=== PATIENT | female | born 1970 | race Caucasian/White ===

== ENCOUNTER 2018-11-05 16:38 | Emergency (ER) | payer OTHER ==
[2018-11-05] MEDS ORDERED: NS(*) 0.9% 1000 ML BAG 1,000 ML IV ONE (16:51)
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
[2018-11-05] MEDS ORDERED: fentaNYL CITR 100 MCG/2 ML AMP IVP ONE (16:55)
[2018-11-05] MEDS ORDERED: ONDANSETRON 4 MG/2 ML VIAL IVP ONE ×2 (16:55→19:20)
[2018-11-05] MEDS ORDERED: DIPHTH/TETANUS/ACEL. PERTUSSIS IM ONE (16:55)
[2018-11-05 17:02] LABS: PLATELET COUNT, AUTOMATED 332 K/uL (150-450)
[2018-11-05 17:09] LABS: INR 0.97
[2018-11-05] MEDS ORDERED: IOPAMIDOL 76% 75 ML INFUS BTL 0 ML ONE (17:11)
[2018-11-05] MEDS ORDERED: TOPI100C6 PO (17:12)
[2018-11-05] MEDS ORDERED: ESTR1PAT18 (17:12)
--- NOTE | 2018-11-05 17:16 | RADIOLOGY IMAGING REPORT ---
FACILITY: [facility] PATIENT NAME: Courtney Santillan : 1970 MR: [id number] V: [id number] EXAM DATE: ORDERING PHYSICIAN: KALEIGH RODRIGUEZ TECHNOLOGIST: Location: [facility] Patient: Courtney Santillan : 1970 Visit/Account:[id number] Date of Sevice: 11/05/2018 CHEST SINGLE AP Additional pertinent History: Trauma COMPARISON STUDIES: None FINDINGS: Support lines and catheters: EKG wire leads Lungs and Pleura: Lung de la rosa well expanded with no infiltrates or consolidations. No parenchymal ma ss lesions are seen. There are no effusions. No pneumothorax. Heart and vasculature: Negative. Mariya and Mediastinum: No mediastinal widening. Aortic arch well-maintained Bones and Chest wall: No obvious rib fractures. Upper Abdomen: Negative. IMPRESSION: 1. Negative chest. Report Dictated By: Angel Clifton MD at 11/05/2018 5:11 PM Report E-Signed By: Angel Clifton MD at 11/05/2018 5:12 PM WSN:[email or web address]
[2018-11-05] MEDS ORDERED: IOPAMIDOL 76% 75 ML INFUS BTL 75 ML ONE (17:18)
--- NOTE | 2018-11-05 17:18 | RADIOLOGY IMAGING REPORT ---
FACILITY: [facility] PATIENT NAME: Courtney Santillan : 1970 MR: [id number] V: [id number] EXAM DATE: ORDERING PHYSICIAN: KALEIGH RODRIGUEZ TECHNOLOGIST: Location: [facility] Patient: Courtney Santillan : 1970 Visit/Account:[id number] Date of Sevice: 11/05/2018 PELVIS HISTORY: Trauma AP pelvic film FINDINGS: No pelvic fracture noted. Both hip joints well-maintained SI joints intact. Lower lumbar spine lulu sly normal with no obvious fractures. Nonspecific bowel gas pattern. IMPRESSION: 1. Negative pelvis Report Dictated By: Angel Clifton MD at 11/05/2018 5:12 PM Report E-Signed By: Angel Clifton MD at 11/05/2018 5:13 PM WSN:[email or web address]
--- NOTE | 2018-11-05 17:35 | EKG ---
[place] [facility] [place] MEG TOTH : [id number] MR: [id number] V: [id number] EXAM DATE: ORDERING PHYSICIAN: KALEIGH RODRIGUEZ TECHNOLOGIST: Test Reason : Blood Pressure : / mmHG Vent. Rate : 098 BPM Atrial Rate : 098 BPM P-R Int : 130 ms QRS Dur : 070 ms QT Int : 320 ms P-R-T Axes : 063 076 041 degrees QTc Int : 408 ms Normal sinus rhythm with sinus arrhythmia No ST-T abnormalities No previous ECGs available Confirmed by ELOY MONTANA ([id number]) on 11/05/2018 5:59:24 PM Referred By: Confirmed By:ELOY MONTANA
[2018-11-05] MEDS ORDERED: HYDROMORPHONE HCL 1 MG/ML SYRINGE IVP ONE ×2 (17:40→19:20)
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
--- NOTE | 2018-11-05 18:14 | RADIOLOGY IMAGING REPORT ---
FACILITY: [facility] [place] PATIENT NAME: Courtney Santillan : 1970 MR: [id number] V: [id number] EXAM DATE: ORDERING PHYSICIAN: KALEIGH RODRIGUEZ TECHNOLOGIST: Location: [facility] [place] Patient: Courtney Santillan : 1970 Visit/Account:[id number] Date of Sevice: 11/05/2018 KNEE 4 VIEW RIGHT Indication: Trauma Comparison: None available Findings: 4 views right knee were obtained. No evidence of fracture, dislocation, or acute osseous abnormality of the right knee. The joint spaces are well-maintained. No evidence of joint effusion. There is no focal soft tissue abnormality. No evidence of radiopaque foreign body. IMPRESSION: 1.No acute osseous abnormality of the right knee Report Dictated By: Liborio Patel MD at 11/05/2018 6:09 PM Report E-Signed By: Liborio Patel MD at 11/05/2018 6:10 PM WSN:[id number]
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
[2018-11-05] MEDS ORDERED: OXYC-865 PO (19:29)
[2018-11-05] MEDS ORDERED: ONDA4TAB97 PO (19:29)
[2018-11-05] MEDS ORDERED: ONDANSETRON 4 MG ODT TH SL ONE (19:40)
[2018-11-05] MEDS ORDERED: oxyCODONE/ACETAMIN 5/325MG TH 2 TAB/BOTTLE PO ONE (19:40)
[2018-11-05 20:30] VITALS: BP 122/80
== END 2018-11-05 21:15 | disposition home or self-care (01) ==
LOC: ER 16:48
DX: S52.91XA Unspecified fracture of right forearm, initial encounter for closed fracture (principal); S52.92XA Unspecified fracture of left forearm, initial encounter for closed fracture; S62.101A Fracture of unspecified carpal bone, right wrist, initial encounter for closed fracture; S62.102A Fracture of unspecified carpal bone, left wrist, initial encounter for closed fracture; S60.219A Contusion of unspecified wrist, initial encounter; S00.81XA Abrasion of other part of head, initial encounter; V86.52XA Driver of snowmobile injured in nontraffic accident, initial encounter; Y93.I9 Activity, other involving external motion
CPT/HCPCS: 29125; 70450; 71045; 71260; 72125; 72170; 73110; 73552; 73564; 74177; 81001; 83690; 85025; 85610; 85730; 90471; 90715; 93005; 96361; 96374; 96375; 96376; 99285; J1170; J2405; J3010; J7030; L0172; L3763; Q9967; S0119; 82040; 82247; 82310; 82374; 82435; 82565; 82947; 84075; 84132; 84155; 84295; 84450; 84460; 84520; A4565